=== PATIENT | female | born 1985 | race American Indian/Alaskan Native ===

== ENCOUNTER 2018-07-15 12:06 | Day surgery (SDC) | payer MEDICAID ==
[2018-07-15] MEDS ORDERED: HEPARIN SUB-Q NR (12:15)
[2018-07-15] MEDS ORDERED: ANCEF/STERILE WATER 2 GM/20 ML IV NR (13:00)
[2018-07-15] MEDS ORDERED: ZEMURON IV ONE (13:43)
[2018-07-15] MEDS ORDERED: DIPRIVAN 10 MG/ML IV ONE (13:43)
[2018-07-15] MEDS ORDERED: DILAUDID ONE (13:43)
[2018-07-15] MEDS ORDERED: XYLOCAINE MPF 2% ONE (13:43)
[2018-07-15] MEDS ORDERED: LACTATED RINGERS 1,000 ML IV SCH (13:59)
[2018-07-15] MEDS ORDERED: VERSED IV NR (14:00)
[2018-07-15] MEDS ORDERED: PEPCID IV NR (14:00)
[2018-07-15] MEDS ORDERED: MARCAINE-EPI 0.5%-1:200,000 INFILTRATI ONE ×3 (14:10→14:44)
[2018-07-15] MEDS ORDERED: ROBINUL ONE (14:43)
[2018-07-15] MEDS ORDERED: DECADRON ONE (14:43)
[2018-07-15] MEDS ORDERED: BLOXIVERZ ONE (14:43)
[2018-07-15] MEDS ORDERED: ZOFRAN ONE (14:43)
[2018-07-15] MEDS ORDERED: NACL 0.9% IR ONE (14:44)
[2018-07-15] MEDS ORDERED: SUBLIMAZE ONE (14:53)
--- NOTE | 2018-07-15 15:33 | Post Operative Note ---
Pre-op diagnosis: ventral hernia Post-op diagnosis: same Findings: Incarcerated omentum Procedure: Open repair with medium Ventralex ST mesh Anesthesia: GETA Surgeon: HECTOR BARNARD Estimated blood loss: minimal Pathology: none Specimen disposition: discarded Condition: stable Disposition: PACU
--- NOTE | 2018-07-15 16:05 | XRay Report ---
FINAL REPORT EXAM: XR ABDOMEN 1V AP HISTORY: INSTRUMENT COUNT TECHNIQUE: Supine views of the abdomen PRIORS: None. FINDINGS: No evidence for radiopaque foreign body is identified throughout the abdomen or pelvis. No evidence for retained instrument is seen. The bowel gas pattern is nonspecific. No free air is identified. Soft tissues have no evidence for mass shadows or calcifications. The bony structures are intact. IMPRESSION: No evidence for radiopaque foreign body or retained instrument identified.
[2018-07-15] MEDS ORDERED: DILAUDID IV PRN (16:08)
--- NOTE | 2018-07-15 16:08 | Anesthesia Consultation ---
Anesthesia Consult and Med Hx Date of service: 07/15/18 - Airway Anesthetic Teeth Evaluation: Good ROM Head & Neck: Adequate Mental/Hyoid Distance: Adequate Mallampati Class: Class II Intubation Access Assessment: Probably Good - Pulmonary Exam CTA: Yes - Cardiac Exam Cardiac Exam: RRR - Pre-Operative Health Status ASA Pre-Surgery Classification: ASA1 Proposed Anesthetic Plan: General - Pulmonary Hx Smoking: No Hx Asthma: No - Cardiovascular System Hx Hypertension: No - Central Nervous System Hx Neuromuscular Disorder: No Hx Seizures: No CVA: No - Gastrointestinal Hx Gastroesophageal Reflux Disease: Yes (asymptomatic today) - Endocrine Hx Renal Disease: No Hx Liver Disease: No Hx Insulin Dependent Diabetes: No Hx Thyroid Disease: No - Other Systems Hx Obesity: No
--- NOTE | 2018-07-15 16:08 | Anesthesia Day of Surgery ---
Anesthesia Day of Surgery - Day of Surgery Patient Examined: Yes Patient H&P Reviewed: Yes Patient is NPO: Yes
[2018-07-15] MEDS ORDERED: PERCOCET 5/325 PO PRN (16:39)
[2018-07-15 18:14] VITALS: BP 112/71
--- NOTE | 2018-07-19 11:19 | Operative Report ---
Operative Report Operative Report: Date of operation: Preoperative diagnosis: Incarcerated ventral hernia Postoperative diagnosis: Ventral hernia with incarcerated omentum Operation: Open repair of incarcerated ventral hernia with medium Ventralex ST mesh Surgeon: Magno Adkins M.D. Findings: See above. Anesthesia: GETA EBL: Minimal There were no complications, drains, cultures or specimens. Description of procedure: Patient was placed supine on the operating room table. GETA was administered. Abdomen was prepped and draped. A small incision was made over the palpable incarcerated hernia. The hernia sac was immediately identified and this was dissected away from the adjacent skin and subcutaneous tissue. The sac was incised and was found to contain incarcerated omentum. The omentum was freed up from the hernia sac and was reduced back into the peritoneal cavity. The hernia sac was then excised at the level of the fascia. I then ensured that there were no adhesions to the abdominal wall adjacent to the fascial defect by sweeping my finger intraperitoneally. A medium piece of Ventralex ST mesh was inserted into the peritoneal cavity. This was secured to the abdominal wall fascia with simultaneous closure of the fascial defect over the mesh with several interrupted sutures of 0 Ethibond. Wound was irrigated with warm saline and was checked for hemostasis which was excellent. Subcutaneous tissue was closed with a running suture of 3-0 Vicryl. Skin was approximated with a running subcuticular suture of 4-0 Monocryl. Mastisol and Steri-Strips were applied across the incision followed by sterile absorbent dressing. Patient was extubated in the operating room. She was taken to PACU in stable condition.
== END 2018-07-15 17:45 | disposition home or self-care (01) ==
LOC: OR 12:06
PROVIDERS: ATTEND Surgery
DX: K43.6 Other and unspecified ventral hernia with obstruction, without gangrene (principal); K21.9 Gastro-esophageal reflux disease without esophagitis; Z98.890 Other specified postprocedural states
CPT/HCPCS: 49561; 49568; 74018; 81025; C1781; J0690; J1100; J1170; J1644; J2250; J2405; J2704; J2710; J3010; J7120